=== PATIENT | female | born 1930 | race Asian ===

== ENCOUNTER 2017-01-20 18:18 | Emergency (ER) | payer OTHER ==
[~2017-01-20] VITALS: Ht 152.4 cm; Wt 43.1 kg
[2017-01-20 18:42] VITALS: BP 106/48; PULSE 107; RESP 18; TEMP 97.4; O2SAT 96
--- NOTE | 2017-01-20 18:48 | NUR ---
Pt placed to ER waiting room in W/C in the care of her [id number].
--- NOTE | 2017-01-20 18:53 | NUR ---
DR. COTO EXAMINING PT
--- NOTE | 2017-01-20 19:00 | NUR ---
Pt eloped. Caregiver seen wheeling pt out of hospital. Pt in stable condition.
== END 2017-01-20 19:00 | disposition left against medical advice (07) ==
LOC: SED 18:18
DX: R53.1 Weakness (principal); J44.9 Chronic obstructive pulmonary disease, unspecified; E11.9 Type 2 diabetes mellitus without complications; Z90.49 Acquired absence of other specified parts of digestive tract
CPT/HCPCS: 99281

== ENCOUNTER 2018-04-22 13:28 | Inpatient (IN) | payer OTHER ==
[~2018-04-22] VITALS: Ht 154.9 cm; Wt 51.7 kg
[~2018-04-22 13:28] MED LIST: ALBU2.5V7 INH; AZIT250T PO; CYAN250014 PO; DONE10TA44 PO; LEVO250T2 PO; PARO-41 PO; SSNOVOLOG SUBCUT; VITA1CAP PO; [UNRECOGNIZED DRUG - CODE] PO
[2018-04-22 13:30] VITALS: BP_SYST 169
[2018-04-22] MEDS ORDERED: IPRATROPIUM/ALBUTEROL SULFATE 3 ML AMPUL.NEB INH ONE ×2 (13:45→15:45)
[2018-04-22] MEDS ORDERED: methylPREDNISolone SOD SUCC/PF 62.5 MG/ML VIAL IVP ONE (13:45)
[2018-04-22 14:19] LABS: BILIRUBIN,URINE NEGATIVE (NEGATIVE); BLOOD, URINE 2+ (NEGATIVE); CLARITY/URINE CLOUDY (CLEAR); COLOR,URINE YELLOW (YELLOW); GLUCOSE,URINE TRACE (NEGATIVE); KETONES,URINE NEGATIVE (NEGATIVE); LEUKOCYTE ESTERASE ,URINE 2+ (NEGATIVE); NITRITE, URINE NEGATIVE (NEGATIVE); PROTEIN URINE 3+ (NEGATIVE); UROBILINOGEN,URINE 0.2 (0.2-1.0)
[2018-04-22 14:31] LABS: BACTERIA,URINE MANY /HPF (None Seen); WBC,URINE >100 /HPF (0-3)
[2018-04-22 14:32] LABS: FINE GRANULAR CASTS,URINE 1+ /LPF (None Seen); YEAST,URINE None Seen /HPF (None Seen)
[2018-04-22 14:33] LABS: MUCUS,URINE None Seen /LPF (None Seen)
[2018-04-22 14:35] LABS: BASOPHILS # (AUTO) 0.1 K/uL (0.0-0.2); BASOPHILS % (AUTO) 0.6 % (0.0-2.0); EOSINOPHILS # (AUTO) 0.2 K/uL (0.0-0.4); EOSINOPHILS % (AUTO) 1.8 % (0.0-4.0); HEMATOCRIT 33.4 % (36-48); HEMOGLOBIN 10.8 g/dL (12.0-16.0); LYMPHOCYTES # (AUTO) 0.9 K/uL (1.0-5.5); LYMPHOCYTES % (AUTO) 8.5 % (20.5-51.5); MEAN CORPUSCULAR HEMOGLOBIN 27 pg (27-31); MEAN CORPUSCULAR HGB CONC 32 % (32-36); MEAN CORPUSCULAR VOLUME 83 fL (79.0-98.0); MONOCYTES # (AUTO) 0.5 K/uL (0.0-1.0); MONOCYTES % (AUTO) 5.3 % (1.7-9.3); NEUTROPHILS # (AUTO) 8.7 K/uL (1.8-7.7); NEUTROPHILS % (AUTO) 83.8 % (40.0-70.0); PLATELET COUNT (AUTO) 325 K/uL (130-430); RED BLOOD CELL COUNT(AUTO) 4.01 MIL/uL (4.2-6.2); RED CELL DISTRIBUTION WIDTH 12.6 % (9.0-15.0); WHITE BLOOD COUNT (AUTO) 10.4 K/uL (4.8-10.8)
[2018-04-22 14:49] LABS: PROTHROMBIN TIME 10.3 SECS (9.5-12.5)
[2018-04-22 14:54] LABS: ANION GAP 9 (5-15); CALCIUM 8.5 mg/dL (8.4-11.0); CHLORIDE 104 mmol/L (98-107); CREATININE 2.25 mg/dL (0.55-1.30); GLUCOSE 236 mg/dL (70-99); POTASSIUM 4.6 mmol/L (3.5-5.1); SODIUM SERUM 137 mmol/L (136-145); UREA NITROGEN, BLOOD 43 mg/dL (8-21)
[2018-04-22 14:59] LABS: ALANINE AMINOTRANSFERASE 21 U/L (12-78); ALBUMIN 3.3 g/dL (3.4-4.8); ASPARTATE AMINOTRANSFERASE 29 U/L (10-37); TOTAL BILIRUBIN 0.2 mg/dL (0.0-1.0)
[2018-04-22] MEDS ORDERED: cefTRIAXone 1 GM IVPB PREMIX 50 ML IV ONE (15:15)
[2018-04-22] MEDS ORDERED: SER25 PO (15:24)
[2018-04-22] MEDS ORDERED: FAMO20TA8 PO (15:24)
[2018-04-22] MEDS ORDERED: MAGN400T10 PO (15:24)
[2018-04-22] MEDS ORDERED: L.RH1CAP PO (15:24)
[2018-04-22] MEDS ORDERED: IPRATROPIUM/ALBUTEROL SULFATE 3 ML AMPUL.NEB INH PRN (15:30)
[2018-04-22] MEDS ORDERED: IPRATROPIUM/ALBUTEROL SULFATE 3 ML AMPUL.NEB ONE (15:42)
[2018-04-22] MEDS ORDERED: LEVOFLOXACIN 250 MG/D5W 50 ML IV ONE (16:00)
[2018-04-22 16:25] VITALS: BP_SYST 121
[2018-04-22] MEDS ORDERED: ACETAMINOPHEN 325 MG TABLET PO PRN (18:15)
[2018-04-22] MEDS ORDERED: LEVOFLOXACIN 250 MG/D5W 50 ML IV SCH (18:30)
[2018-04-22] MEDS ORDERED: COMMUNICATION ORDER XX ONE ×2 (18:30→18:45)
[2018-04-22 20:00] VITALS: BP_SYST 126
[2018-04-22] MEDS ORDERED: methylPREDNISolone SOD SUCC 40 MG/ML VIAL IVP ONE (20:00)
[2018-04-22] MEDS: MAGNESIUM OXIDE 400 MG TABLET PO SCH (20:01)
[2018-04-22] MEDS ORDERED: QUEtiapine FUMARATE 25 MG TABLET PO SCH (21:00)
[2018-04-22] MEDS ORDERED: DONEPEZIL HCL 5 MG TABLET (ARICEPT) PO SCH (21:00)
[2018-04-23] VITALS: BP_SYST 137
[2018-04-23] MEDS ORDERED: methylPREDNISolone SOD SUCC 40 MG/ML VIAL IVP SCH (06:00)
[2018-04-23 08:10] LABS: BASOPHILS % (AUTO) 0.2 % (0.0-2.0); EOSINOPHILS % (AUTO) 0.1 % (0.0-4.0); HEMATOCRIT 30.4 % (36-48); HEMOGLOBIN 10.2 g/dL (12.0-16.0); LYMPHOCYTES # (AUTO) 0.6 K/uL (1.0-5.5); LYMPHOCYTES % (AUTO) 7.3 % (20.5-51.5); MEAN CORPUSCULAR HEMOGLOBIN 28 pg (27-31); MEAN CORPUSCULAR HGB CONC 34 % (32-36); MEAN CORPUSCULAR VOLUME 83 fL (79.0-98.0); MONOCYTES # (AUTO) 0.4 K/uL (0.0-1.0); MONOCYTES % (AUTO) 4.7 % (1.7-9.3); NEUTROPHILS # (AUTO) 7.2 K/uL (1.8-7.7); NEUTROPHILS % (AUTO) 87.7 % (40.0-70.0); PLATELET COUNT (AUTO) 285 K/uL (130-430); RED BLOOD CELL COUNT(AUTO) 3.65 MIL/uL (4.2-6.2); RED CELL DISTRIBUTION WIDTH 12.8 % (9.0-15.0); WHITE BLOOD COUNT (AUTO) 8.2 K/uL (4.8-10.8)
[2018-04-23] MEDS: MAGNESIUM OXIDE 400 MG TABLET PO SCH (08:19)
[2018-04-23 08:38] LABS: ALANINE AMINOTRANSFERASE 18 U/L (12-78); ALBUMIN 2.8 g/dL (3.4-4.8); ANION GAP 10 (5-15); ASPARTATE AMINOTRANSFERASE 21 U/L (10-37); CALCIUM 8.6 mg/dL (8.4-11.0); CHLORIDE 107 mmol/L (98-107); CREATININE 2.29 mg/dL (0.55-1.30); GLUCOSE 346 mg/dL (70-99); POTASSIUM 4.8 mmol/L (3.5-5.1); SODIUM SERUM 138 mmol/L (136-145); TOTAL BILIRUBIN 0.2 mg/dL (0.0-1.0); UREA NITROGEN, BLOOD 49 mg/dL (8-21)
[2018-04-23] MEDS ORDERED: ENOXAPARIN SODIUM 30 MG/0.3 ML SYRINGE SUBCUT SCH (09:00)
[2018-04-23] MEDS ORDERED: LACTOBACILLUS RHAMNOSUS GG 1 CAP CAPSULE PO SCH (09:00)
[2018-04-23] MEDS ORDERED: CYANOCOBALAMIN 1000 mCg TABLET PO SCH (09:00)
[2018-04-23] MEDS ORDERED: FAMOTIDINE 20 MG TABLET PO SCH (09:00)
[2018-04-23 12:32] VITALS: BP_SYST 121
[2018-04-23 13:28] VITALS: BP_SYST 130
[2018-04-23] MEDS ORDERED: BUDE6HFA INH (13:59)
[2018-04-23] MEDS ORDERED: ALBU8.5H8 INH (14:01)
[2018-04-23] MEDS ORDERED: MED4 PO (14:02)
[2018-04-23] MEDS ORDERED: AZIT500T2 PO (14:03)
[2018-04-24] MEDS ORDERED: LEVOFLOXACIN 250 MG/D5W 50 ML IV SCH (21:00)
[2018-05-07] MEDS ORDERED: CHOL500037 PO (11:54)
[2018-05-07] MEDS ORDERED: ALEN10TA6 PO (11:54)
== END 2018-04-23 14:50 | disposition home or self-care (01) | DRG 189 ==
LOC: SED 13:28 → STU 15:24
PROVIDERS: ADMIT Internal Medicine; ATTEND Internal Medicine
DX: J96.01 Acute respiratory failure with hypoxia (principal); R65.11 Systemic inflammatory response syndrome (SIRS) of non-infectious origin with acute organ dysfunction; J44.1 Chronic obstructive pulmonary disease with (acute) exacerbation; J84.9 Interstitial pulmonary disease, unspecified; N39.0 Urinary tract infection, site not specified; E86.0 Dehydration; E11.9 Type 2 diabetes mellitus without complications; F03.90 Unspecified dementia, unspecified severity, without behavioral disturbance, psychotic disturbance, mood disturbance, and anxiety; H91.90 Unspecified hearing loss, unspecified ear; I11.0 Hypertensive heart disease with heart failure; I50.9 Heart failure, unspecified; R09.02 Hypoxemia; F32.9 Major depressive disorder, single episode, unspecified; Z79.899 Other long term (current) drug therapy
CPT/HCPCS: 36415; 36600; 71045; 80053; 81000-TC; 82803-TC; 83605; 83880; 84484; 85025; 85610-TC; 85730-TC; 87040-TC; 87086; 87186-TC; 93005; 94640; 96365; 96375; 99285; J0696; J1030; J1650; J1956; J2930; J7620

== ENCOUNTER 2019-10-23 19:19 | Inpatient (IN) | payer OTHER ==
[~2019-10-23] VITALS: Ht 160 cm; Wt 41.7 kg
[~2019-10-23 19:19] MED LIST changes: -ALBU2.5V7 INH; +ALBU8.5H8 INH; +ALEN10TA7 PO; -AZIT250T PO; +CHOL500037 PO; +FAMO20TA8 PO; +L.RH1CAP PO; -LEVO250T2 PO; +MAGN400T10 PO; -PARO-41 PO; +SER25 PO; -VITA1CAP PO; +[UNRECOGNIZED DRUG - CODE] PO; -[UNRECOGNIZED DRUG - CODE] PO
[2019-10-23 19:45] VITALS: BP_SYST 119
--- NOTE | 2019-10-23 19:45 | NUR ---
Patient to ER bed 6 to gown for evaluation. Side rails up.
--- NOTE | 2019-10-23 20:00 | NUR ---
Pt bropught in by ems from [facility]. EMS crew states that SNF staff informed them that patient had cough and congestion x5 days. tp has no other complaint at this time. Pt had chest xray on 11/13/2019 that showed R sided basal infiltrates per EMS crew. Pt awake, alert, confused. Pt denies shortness of breath, chest pain, nausea, vomiting, diarrhea, any other medical complaint at this time. SNF staff states that patient has not had any other unusual behavior or complaints at this time. Pt has rapid respiratory rate, with rales in upper airway and lungs. Pt had productive cough upon presentation to ED. Pt resting in ED bed. No acute distress. VSS
--- NOTE | 2019-10-23 20:00 | NUR ---
ER at bedside examining patient.
[2019-10-23 20:44] LABS: BASOPHILS % (AUTO) 0.3 % (0.0-2.0); EOSINOPHILS # (AUTO) 0.1 K/uL (0.0-0.4); EOSINOPHILS % (AUTO) 0.7 % (0.0-4.0); HEMOGLOBIN 9.1 g/dL (12.0-16.0); LYMPHOCYTES % (AUTO) 8.4 % (20.5-51.5); MEAN CORPUSCULAR HEMOGLOBIN 28 pg (27-31); MEAN CORPUSCULAR HGB CONC 33 % (32-36); MEAN CORPUSCULAR VOLUME 86 fL (79.0-98.0); MONOCYTES # (AUTO) 0.7 K/uL (0.0-1.0); MONOCYTES % (AUTO) 5.7 % (1.7-9.3); NEUTROPHILS # (AUTO) 10.5 K/uL (1.8-7.7); NEUTROPHILS % (AUTO) 84.9 % (40.0-70.0); PLATELET COUNT (AUTO) 320 K/uL (130-430); RED BLOOD CELL COUNT(AUTO) 3.26 MIL/uL (4.2-6.2); RED CELL DISTRIBUTION WIDTH 13.5 % (9.0-15.0); WHITE BLOOD COUNT (AUTO) 12.4 K/uL (4.8-10.8)
--- NOTE | 2019-10-23 21:00 | NUR ---
Pt resting in ED bed, Tolerating IV antibiotics Well.
[2019-10-23 21:03] LABS: ANION GAP 11 (5-15); CALCIUM 8.3 mg/dL (8.4-11.0); CHLORIDE 99 mmol/L (98-107); CREATININE 2.16 mg/dL (0.55-1.30); GLUCOSE 151 mg/dL (70-99); POTASSIUM 4.5 mmol/L (3.5-5.1); SODIUM SERUM 130 mmol/L (136-145); UREA NITROGEN, BLOOD 51 mg/dL (8-21)
[2019-10-23 21:08] LABS: ALANINE AMINOTRANSFERASE 23 U/L (12-78); ALBUMIN 2.9 g/dL (3.4-4.8); ASPARTATE AMINOTRANSFERASE 30 U/L (10-37); TOTAL BILIRUBIN 0.3 mg/dL (0.0-1.0)
--- NOTE | 2019-10-23 22:32 | NUR ---
Spoke with to take TO orders for admission
--- NOTE | 2019-10-23 22:35 | NUR ---
Spoke to [facility] [place] floor to request Bed
--- NOTE | 2019-10-23 23:30 | NUR ---
Pt will be MST/TELE HOLD in ER
[2019-10-24] MEDS ORDERED: ALBUTEROL SULFATE 0.083% 2.5 MG/3 ML VIAL.NEB INH PRN (00:45)
[2019-10-24] MEDS ORDERED: ACETAMINOPHEN 325 MG TABLET PO PRN (00:45)
[2019-10-24 04:56] LABS: BASOPHILS % (AUTO) 0.2 % (0.0-2.0); EOSINOPHILS % (AUTO) 0.3 % (0.0-4.0); HEMOGLOBIN 8.7 g/dL (12.0-16.0); LYMPHOCYTES # (AUTO) 1.1 K/uL (1.0-5.5); LYMPHOCYTES % (AUTO) 8.3 % (20.5-51.5); MEAN CORPUSCULAR HEMOGLOBIN 28 pg (27-31); MEAN CORPUSCULAR HGB CONC 32 % (32-36); MEAN CORPUSCULAR VOLUME 86 fL (79.0-98.0); MONOCYTES # (AUTO) 0.8 K/uL (0.0-1.0); MONOCYTES % (AUTO) 5.9 % (1.7-9.3); NEUTROPHILS # (AUTO) 11.4 K/uL (1.8-7.7); NEUTROPHILS % (AUTO) 85.3 % (40.0-70.0); PLATELET COUNT (AUTO) 311 K/uL (130-430); RED BLOOD CELL COUNT(AUTO) 3.15 MIL/uL (4.2-6.2); RED CELL DISTRIBUTION WIDTH 13.3 % (9.0-15.0); WHITE BLOOD COUNT (AUTO) 13.4 K/uL (4.8-10.8)
[2019-10-24 05:19] LABS: ALANINE AMINOTRANSFERASE 17 U/L (12-78); ALBUMIN 2.5 g/dL (3.4-4.8); ANION GAP 13 (5-15); ASPARTATE AMINOTRANSFERASE 24 U/L (10-37); CHLORIDE 103 mmol/L (98-107); CREATININE 2.02 mg/dL (0.55-1.30); GLUCOSE 106 mg/dL (70-99); POTASSIUM 4.9 mmol/L (3.5-5.1); SODIUM SERUM 134 mmol/L (136-145); TOTAL BILIRUBIN 0.3 mg/dL (0.0-1.0); UREA NITROGEN, BLOOD 48 mg/dL (8-21)
[2019-10-24] MEDS: NACL 0.9% 1,000 ML IV SCH ×3 (05:50→19:00)
[2019-10-24] MEDS: ALBUTEROL SULFATE 0.083% 2.5 MG/3 ML VIAL.NEB INH SCH ×2 (07:00→15:29)
--- NOTE | 2019-10-24 07:26 | NUR ---
Cuate beth in [facility] - 10/24/19 at 0727 by [email or web address] report received from Sreedhar NG Pt is in stable condition
--- NOTE | 2019-10-24 07:30 | NUR ---
report received from Sreedhar LUND. Pt is in stable condition. Waiting for a tele bed
--- NOTE | 2019-10-24 08:23 | NUR ---
Patient will be admitted to care of Dr. Ruiz. Admitted to tele unit. Will go to room 103-b. Belongings list completed. Complete and up to date summary report printed. SBAR report to be given at bedside with opportunity for questions.Bedside report given
--- NOTE | 2019-10-24 09:04 | NUR ---
[facility] THERAPIST HOLLY WAS CALLED, RE: SWALLOWING EVAL.
--- NOTE | 2019-10-24 09:45 | NUR ---
LIVESTOCK PRODUCER NOTES RECEIVED PATIENT FROM ER , ALERT AWAKE WITH HL TO RT HAND VERBAL NO DISTRESS RESP EVEN WITH ON AND OFF NON PRODUCTIVE COUGH MOIST, LALA 965 Addendum: 10/24/19 at 1214 by Maya Rosas RN ERROR FOR SATURATION LALA 96%
[2019-10-24] MEDS: MAGNESIUM OXIDE 400 MG TABLET PO SCH ×2 (09:52→20:31)
[2019-10-24] MEDS: FAMOTIDINE 20 MG TABLET PO SCH (09:52)
--- NOTE | 2019-10-24 10:45 | NUR ---
CONSULTATION PAGED/CALLED Reason for Consultation: COPD Person Who was Notified: SPOKE WITH AMAURY FROM OFFICE Consulting Physician: Textile Examiner Specialty: PULMO Ordering Physician:
[2019-10-24 11:00] VITALS: BP_SYST 112
[2019-10-24 12:19] VITALS: BP_SYST 112
--- NOTE | 2019-10-24 12:30 | NUR ---
DR ISAÍAS MENDENHALL CAME [id number] PATIENT CONDITION , ASKED IF HE WANTS DVT PPX , HE SAID HE WILL ORDER
[2019-10-24 16:12] VITALS: BP_SYST 112
--- NOTE | 2019-10-24 16:50 | NUR ---
S.T. SWALLOW EVAL SWALLOW EVAL COMPLETED. PT PRESENTS W/ FUNCTIONAL OROPHARYNGEAL SWALLOW FOR PUREE AND THIN/THICK LIQUIDS. NO S/S OF ASPIRATION. NOT A CANDIDATE FOR [facility] SOFT OR REGULAR TEXTURED DIET AT THIS TIME D/T MISSING UPPER DENTITION AND LOOSE FITTING LOWER DENTURES. REC: PUREE DIET. THIN LIQUIDS OK. NURSE CHERIE NOTIFIED.
--- NOTE | 2019-10-24 17:30 | NUR ---
ROUNDS PATIENT IS IN BED SLEEPING
--- NOTE | 2019-10-24 18:07 | NUR ---
REFUSED BS PATIENT REFUSED BLOOD SUGAR CHECK , PATIENT ALSO SCRATCHED AND CURST TO NURSES AND SAYS BAD WORDS, REDIRECTED BUT SHE IS VERY QUICK AND SHE SCRATCHED Addendum: 10/24/19 at 1957 by Maya Rosas RN DR LAYTON CAME PATIENT AND DISCUSSED PATIENT CONDITION
[2019-10-24 19:00] VITALS: BP_SYST 115
--- NOTE | 2019-10-24 19:00 | NUR ---
ENDORSEMENT WILL ENDORSE TO NEXT SHIFT CONT CARE , ON LAST ROUNDS PATIENT NOTED WITH BLACKISH STOOL WILL ENDORSED TO NEXT SHIFT TO NOTIFY MD NEEDED, PATIENT IS RESTED AT THIS TIME
[2019-10-24] MEDS ORDERED: FLU VACC TS2019(65UP)/MF59C/PF 45 MCG/0.5 ML SYRINGE I.M. PRN (19:45)
[2019-10-24 20:00] VITALS: BP_SYST 115
[2019-10-24] MEDS: cefTRIAXone 1 GM IVPB PREMIX 50 ML IV SCH (20:30)
[2019-10-24] MEDS: QUEtiapine FUMARATE 25 MG TABLET PO SCH (20:31)
[2019-10-24] MEDS: DONEPEZIL HCL 5 MG TABLET (ARICEPT) PO SCH (20:31)
[2019-10-24] MEDS: AZITHROMYCIN 500 MG in NS 250 ML IV SCH (20:31)
[2019-10-24] MEDS: methylPREDNISolone SOD SUCC/PF 62.5 MG/ML VIAL IVP SCH (20:34)
[2019-10-24] MEDS: INSULIN LISPRO SLIDING SCALE 100 UNITS/ML VIAL (humaLOG) SUBCUT PRN (20:51)
[2019-10-25] VITALS: BP_SYST 110
[2019-10-25] MEDS: INSULIN LISPRO SLIDING SCALE 100 UNITS/ML VIAL (humaLOG) SUBCUT PRN ×4 (06:03→21:44)
[2019-10-25] MEDS: IPRATROPIUM BROM 0.5 MG/2.5 ML VIAL.NEB (ATROVENT) INH SCH ×3 (07:31→19:46)
[2019-10-25] MEDS: ALBUTEROL SULFATE 0.083% 2.5 MG/3 ML VIAL.NEB INH SCH ×3 (07:31→19:46)
[2019-10-25 08:00] VITALS: BP_SYST 103
[2019-10-25] MEDS ORDERED: FLU VACC QS2019-20 36MOS UP/PF 60 MCG/0.5 ML SYRINGE I.M. PRN (08:00)
--- NOTE | 2019-10-25 08:00 | NUR ---
ASSUMPTION OF CARE: RECEIVED PT A/A/OX4, DX:INADEQUATE VENTILATION, R/T PNEUMONIA, BREATH SOUNDS ARE RHONCHI, BREATHING IS UNLABORED, IV SITE INTACT, PATENT, NO REDNESS OR SWELLING, AFEBRILE, VSS, NO INDICATION OF DISTRESS OR DISCOMFORT, RESTING ON AIR MATTRESS, POSITIONED FOR COMFORT, WILL CONT' TO MONITOR AND ASSESS.
[2019-10-25 08:38] LABS: ALANINE AMINOTRANSFERASE 17 U/L (12-78); ALBUMIN 2.3 g/dL (3.4-4.8); ANION GAP 11 (5-15); ASPARTATE AMINOTRANSFERASE 33 U/L (10-37); CALCIUM 7.8 mg/dL (8.4-11.0); CHLORIDE 105 mmol/L (98-107); CREATININE 1.86 mg/dL (0.55-1.30); GLUCOSE 171 mg/dL (70-99); POTASSIUM 4.7 mmol/L (3.5-5.1); SODIUM SERUM 133 mmol/L (136-145); TOTAL BILIRUBIN 0.2 mg/dL (0.0-1.0); UREA NITROGEN, BLOOD 42 mg/dL (8-21)
[2019-10-25 08:56] LABS: BASOPHILS % (AUTO) 0.1 % (0.0-2.0); HEMATOCRIT 25.9 % (36-48); HEMOGLOBIN 8.6 g/dL (12.0-16.0); LYMPHOCYTES % (AUTO) 11.3 % (20.5-51.5); MEAN CORPUSCULAR HEMOGLOBIN 29 pg (27-31); MEAN CORPUSCULAR HGB CONC 33 % (32-36); MEAN CORPUSCULAR VOLUME 86 fL (79.0-98.0); MONOCYTES # (AUTO) 0.2 K/uL (0.0-1.0); MONOCYTES % (AUTO) 2.1 % (1.7-9.3); NEUTROPHILS # (AUTO) 7.7 K/uL (1.8-7.7); NEUTROPHILS % (AUTO) 86.5 % (40.0-70.0); PLATELET COUNT (AUTO) 280 K/uL (130-430); RED BLOOD CELL COUNT(AUTO) 2.99 MIL/uL (4.2-6.2); RED CELL DISTRIBUTION WIDTH 13.5 % (9.0-15.0); WHITE BLOOD COUNT (AUTO) 8.9 K/uL (4.8-10.8)
--- NOTE | 2019-10-25 09:00 | NUR ---
MAINTENANCE MECHANIC TELEPHONE: MORNING MEDS GIVEN, PER ORDERED BY Rin, TOLERATED WELL, WILL CONT' TO MONITOR, WILL CONT' WITH POC.
--- NOTE | 2019-10-25 09:21 | NUR ---
Nutrition Update Micah Scale 11 noted. Pt admitted for pneumonia. Diet: mechanical soft BMI: 16.4 kg/m2 RD to follow per nutrition care standards.
[2019-10-25] MEDS: MAGNESIUM OXIDE 400 MG TABLET PO SCH ×2 (09:27→20:56)
[2019-10-25] MEDS: methylPREDNISolone SOD SUCC/PF 62.5 MG/ML VIAL IVP SCH ×2 (09:27→20:55)
[2019-10-25] MEDS: FAMOTIDINE 20 MG TABLET PO SCH (09:28)
[2019-10-25 12:00] VITALS: BP_SYST 107
--- NOTE | 2019-10-25 12:00 | NUR ---
GLUCOSE MONITORING: BLOOD SUGAR [id number]=650, 12 UNITS HUMALOG INSULIN GIVEN SQ, TOLERATED WELL, WILL CONT' TO MONITOR AND ASSESS.
--- NOTE | 2019-10-25 12:49 | NUR ---
Dietitian Recommendations * Recommend mechanical soft, CCHO diet w/ Glucerna TID, Zach BID (supplements provide an additional ~840 kcal/day, 35 gm protein/day) CACHORRO KING Please refer to Nutrition Assessment for details. Addendum: 10/25/19 at [address] Amended: Links added.
--- NOTE | 2019-10-25 14:00 | NUR ---
NURSES NOTES: PT RESTING IN POSITION OF COMFORT, WAS PARTIALLY BATH, ORAL CARE REFUSED, REPOSITIONED FOR COMFORT, WITH PILLOW SUPPORT, WILL CONT' TO MONITOR AND ASSESS.
[2019-10-25 16:00] VITALS: BP_SYST 115
--- NOTE | 2019-10-25 17:30 | NUR ---
GLUCOSE MONITORING: BLOOD SUGAR QFWZH=373, 8 UNITS HUMALOG INSULIN GIVEN SQ, TOLERATED WELL, WILL CONT' TO MONITOR AND ASSESS.
--- NOTE | 2019-10-25 18:30 | NUR ---
END OF SHIFT: PT HAS LAB RESULT FOR (POSITIVE MRSA NARES), PLACED ON CONTACT ISOLATION, CALL PLACED TO M.Roddy, MESSAGE LEFT, AWAITING CALL BACK.
[2019-10-25] MEDS: DONEPEZIL HCL 5 MG TABLET (ARICEPT) PO SCH (20:56)
[2019-10-25] MEDS: QUEtiapine FUMARATE 25 MG TABLET PO SCH (20:56)
[2019-10-25] MEDS: cefTRIAXone 1 GM IVPB PREMIX 50 ML IV SCH (21:04)
[2019-10-25] MEDS: AZITHROMYCIN 500 MG in NS 250 ML IV SCH (21:47)
[2019-10-26] MEDS: ALBUTEROL SULFATE 0.083% 2.5 MG/3 ML VIAL.NEB INH SCH ×5 (00:08→19:45)
[2019-10-26] MEDS: IPRATROPIUM BROM 0.5 MG/2.5 ML VIAL.NEB (ATROVENT) INH SCH ×5 (00:08→19:45)
[2019-10-26 00:12] VITALS: BP_SYST 115
[2019-10-26] MEDS: INSULIN LISPRO SLIDING SCALE 100 UNITS/ML VIAL (humaLOG) SUBCUT PRN ×4 (06:20→21:20)
[2019-10-26] MEDS: NACL 0.9% 1,000 ML IV SCH ×2 (06:22→21:55)
[2019-10-26 08:00] VITALS: BP_SYST 113
--- NOTE | 2019-10-26 08:00 | NUR ---
ASSUMPTION OF CARE: RECEIVED PT A/A/OX4, DX:INADEQUATE VENTILATION, R/T PNEUMONIA, BREATH SOUNDS ARE RHONCHI, BREATHING IS UNLABORED, IV SITE INTACT, PATENT, NO REDNESS OR SWELLING, AFEBRILE, VSS, NO INDICATION OF DISTRESS OR DISCOMFORT, RESTING IN POSITIONED FOR COMFORT, WILL CONT' TO MONITOR AND ASSESS.
[2019-10-26] MEDS: MAGNESIUM OXIDE 400 MG TABLET PO SCH ×2 (08:33→21:22)
[2019-10-26] MEDS: FAMOTIDINE 20 MG TABLET PO SCH (08:33)
[2019-10-26] MEDS ORDERED: PREDNISONE 20 MG TABLET PO ONE (08:45)
[2019-10-26] MEDS ORDERED: MED4 PO (08:53)
[2019-10-26] MEDS ORDERED: LEVO250T58 PO (08:53)
[2019-10-26] MEDS ORDERED: MULTIVITAMINS TAB 1 TABLET PO ONE (09:00)
--- NOTE | 2019-10-26 09:00 | NUR ---
BOTTOM PAINTER: MORNING MEDS GIVEN, PER ORDERED BY Rin, TOLERATED WELL, WILL CONT' TO MONITOR, WILL CONT' WITH POC.
--- NOTE | 2019-10-26 09:00 | NUR ---
VISIT: AT BEDSIDE FOR ASSESSMENT OF PT, NEW ORDERS GIVEN, PT IS STABLE AT THIS TIME, WILL CONT' TO MONITOR AND ASSESS.
--- NOTE | 2019-10-26 11:30 | NUR ---
GLUCOSE MONITORING: BLOOD SUGAR XRMMH=386, 6 UNITS HUMALOG INSULIN GIVEN SQ, TOLERATED WELL, WILL CONT' TO MONITOR AND ASSESS.
[2019-10-26] MEDS: CALCITONIN SALMON,SYNTHETIC 3.7 ML SPRAY.PUMP NS SCH (11:57)
[2019-10-26 12:29] VITALS: BP_SYST 151
--- NOTE | 2019-10-26 15:16 | NUR ---
DC to SNF process: Call and spoke to Hetal regarding Dr. Garrett has ordered to DC to SNF. She said that she will contact to facility and call back.
[2019-10-26 16:08] VITALS: BP_SYST 143
--- NOTE | 2019-10-26 17:30 | NUR ---
GLUCOSE MONITORING: BLOOD SUGAR FFOUR=005, 2 UNITS HUMALOG INSULIN GIVEN SQ, TOLERATED WELL, WILL CONT' TO MONITOR AND ASSESS.
[2019-10-26 19:30] VITALS: BP_SYST 150
--- NOTE | 2019-10-26 19:40 | NUR ---
INITIAL NOTES PATIENT IS LAYING IN BED AND STABLE. NO S/S OF RESPIRATORY DISTRESS NOTED. CALL LIGHT IN REACH. BED IS LOCKED, ALARMED,AND AT THE LOWEST POSITION. FALL, SAFETY, ASPIRATION, CONTACT, AND RESPIRATORY PRECAUTIONS WILL BE IN PLACE THROUGHOUT THE SHIFT. PLAN OF CARE DISCUSSED WITH PATIENT. PATIENT UNSUCCESSFULLY DEMONSTRATES USAGE OF CALL LIGHT AT THIS TIME. WILL CONTINUE TO MONITOR FREQUENTLY.
[2019-10-26] MEDS ORDERED: INSULIN GLARGINE 100 UNITS/ML 10 ML VIAL SUBCUT SCH (21:00)
[2019-10-26] MEDS: cefTRIAXone 1 GM IVPB PREMIX 50 ML IV SCH (21:11)
[2019-10-26] MEDS: DONEPEZIL HCL 5 MG TABLET (ARICEPT) PO SCH (21:22)
[2019-10-26] MEDS: QUEtiapine FUMARATE 25 MG TABLET PO SCH (21:22)
--- NOTE | 2019-10-26 21:40 | NUR ---
PATIENT WAS CLEANED AT THIS TIME. PATIENT TOLERATED WELL. PATIENT IS STABLE. NO S/S OF RESPIRATORY DISTRESS NOTED. CALL LIGHT IN REACH. BED IS LOCKED, ALARMED, AND AT THE LOWEST POSITION.
[2019-10-26] MEDS: AZITHROMYCIN 500 MG in NS 250 ML IV SCH (21:55)
--- NOTE | 2019-10-26 23:40 | NUR ---
PATIENT IS SLEEPING AND STABLE. NO S/S OF RESPIRATORY DISTRESS NOTED. CALL LIGHT IN REACH. BED IS LOCKED, ALARMED, AND AT THE LOWEST POSITION.
[2019-10-27] MEDS: ALBUTEROL SULFATE 0.083% 2.5 MG/3 ML VIAL.NEB INH SCH ×3 (01:00→13:34)
[2019-10-27] MEDS: IPRATROPIUM BROM 0.5 MG/2.5 ML VIAL.NEB (ATROVENT) INH SCH ×3 (01:00→13:34)
--- NOTE | 2019-10-27 03:40 | NUR ---
PATIENT HAD A BOWEL MOVEMENT. PATIENT WAS CHANGED. PATIENT IS STABLE. NO S/S OF RESPIRATORY DISTRESS NOTED. CALL LIGHT IN REACH. BED IS LOCKED, ALARMED, AND AT THE LOWEST POSITION.
--- NOTE | 2019-10-27 04:30 | NUR ---
WOUND CARE PERFORMED AT THIS TIME. PATIENT TOLERATED WELL.
[2019-10-27] MEDS: INSULIN LISPRO SLIDING SCALE 100 UNITS/ML VIAL (humaLOG) SUBCUT PRN ×2 (06:08→17:01)
--- NOTE | 2019-10-27 06:46 | NUR ---
CLOSING NOTES PATIENT IS STABLE. NO S/S OF RESPIRATORY DISTRESS. CALL LIGHT IN REACH. BED IS LOCKED, ALARMED, AND AT THE LOWEST POSITION. FALL, SAFETY, ASPIRATION, CONTACT, AND RESPIRATORY PRECAUTIONS HAS BEEN IN PLACE THROUGHOUT THE SHIFT. ALL NEEDS MET. WILL CONTINUE TO MONITOR UNTIL REPORT IS GIVEN TO AM NURSE BY BEDSIDE.
[2019-10-27 07:33] LABS: BASOPHILS % (AUTO) 0.2 % (0.0-2.0); EOSINOPHILS % (AUTO) 0.1 % (0.0-4.0); HEMATOCRIT 27.8 % (36-48); HEMOGLOBIN 8.9 g/dL (12.0-16.0); LYMPHOCYTES % (AUTO) 10.4 % (20.5-51.5); MEAN CORPUSCULAR HEMOGLOBIN 28 pg (27-31); MEAN CORPUSCULAR HGB CONC 32 % (32-36); MEAN CORPUSCULAR VOLUME 86 fL (79.0-98.0); MONOCYTES # (AUTO) 0.5 K/uL (0.0-1.0); MONOCYTES % (AUTO) 5.2 % (1.7-9.3); NEUTROPHILS # (AUTO) 8.5 K/uL (1.8-7.7); NEUTROPHILS % (AUTO) 84.1 % (40.0-70.0); PLATELET COUNT (AUTO) 375 K/uL (130-430); RED BLOOD CELL COUNT(AUTO) 3.23 MIL/uL (4.2-6.2); RED CELL DISTRIBUTION WIDTH 13.7 % (9.0-15.0); WHITE BLOOD COUNT (AUTO) 10.1 K/uL (4.8-10.8)
[2019-10-27 07:55] LABS: ALANINE AMINOTRANSFERASE 32 U/L (12-78); ALBUMIN 2.5 g/dL (3.4-4.8); ANION GAP 11 (5-15); ASPARTATE AMINOTRANSFERASE 35 U/L (10-37); CALCIUM 7.8 mg/dL (8.4-11.0); CHLORIDE 107 mmol/L (98-107); GLUCOSE 128 mg/dL (70-99); POTASSIUM 4.5 mmol/L (3.5-5.1); SODIUM SERUM 137 mmol/L (136-145); TOTAL BILIRUBIN 0.2 mg/dL (0.0-1.0); UREA NITROGEN, BLOOD 43 mg/dL (8-21)
[2019-10-27 08:00] VITALS: BP_SYST 125
[2019-10-27] MEDS ORDERED: PREDNISONE 20 MG TABLET PO SCH (08:00)
--- NOTE | 2019-10-27 08:00 | NUR ---
Note Pt sitting up in bed to eat her breakfast. No SOB/resp or severe pain/discomfort noted at this time. IV in right hand intact and patent infusing IVF's well. No needs noted at this time. Call light within reach.
[2019-10-27] MEDS: MAGNESIUM OXIDE 400 MG TABLET PO SCH (08:13)
[2019-10-27] MEDS: FAMOTIDINE 20 MG TABLET PO SCH (08:13)
[2019-10-27] MEDS: CALCITONIN SALMON,SYNTHETIC 3.7 ML SPRAY.PUMP NS SCH (08:13)
[2019-10-27] MEDS ORDERED: MULTIVITAMINS TAB 1 TABLET PO SCH (09:00)
[2019-10-27 09:49] VITALS: BP_SYST 125
--- NOTE | 2019-10-27 10:30 | NUR ---
Note Pt was seen and assessed by Dr Ruiz, orders written and carried out. Pt resting in bed. No needs noted at this time. Call light within reach.
[2019-10-27] MEDS ORDERED: VANCOMYCIN HCL 750 MG/NS 250 ML IV SCH (11:00)
[2019-10-27 12:38] VITALS: BP_SYST 125
--- NOTE | 2019-10-27 14:35 | NUR ---
Note Pt finished eating her lunch and now resting in bed. Denies any needs at this time. Call light within reach.
[2019-10-27 16:37] VITALS: BP_SYST 119
--- NOTE | 2019-10-27 16:45 | NUR ---
WOUND EVALUATION: Wound Consult received from Dr. Ruiz. Thank you Dr. Ruiz for the consult. Patient received in a [place] Bed with an IsoFlex BRITANY mattress, awake, alert, confused. Patient is unable to turn in bed independently. Micah Score is a 14. Past Medical History: Hypertension, Dementia, Diabetes Mellitus, COPD. Recent Labs: WBC 10.1, RBC 3.23, hemoglobin 8.9, hematocrit 27.8, BUN 43, creatinine 1.80, glucose 128, POC glucose 216, calcium 7.8, albumin 2.5. Microbiology: Blood culture results 2 in progress. MRSA screen results positive. Intrinsic factors that delay wound healing: Diabetes Mellitus, COPD. Extrinsic factors that delay wound healing: Decreased mobility. Wound Assessment: 1. Sacral Area: sDTI, present on admission. Site has barely blanchable red erythema with dark discoloration. No odor, no drainage. Site measures 7.0 cm x 6.0 cm. Recommend: Cover site with sacral foam dressing. Offload site at all times. Reposition patient side to side only every hour. 2. Left Lateral Hip: Blanchable red erythema, present on admission. No odor, no drainage. Healed wound with scar tissue present. 3. Right Lateral Hip: Blanchable red erythema, present on admission. No odor, no drainage. Dark discoloration and scar tissue present. Recommend: Cover sites with foam dressings. Offload sites at all times. Reposition patient side to side only every hour. 4. Left Heel: sDTI, present on admission. Site has barely blanchable red erythema with dark discoloration. No odor, no drainage. 5. Right Heel: sDTI, present on admission. Site has barely blanchable red erythema with dark discoloration. No odor, no drainage. 6. Left Lateral Foot: Blanchable red erythema, present on admission. No odor, no drainage. 7. Right Lateral Foot: Blanchable red erythema, present on admission. No odor, no drainage. Recommend: Cover sites with foam dressings. Offload sites at all times. Do not allow heels or any portion of feet to touch bed or other surfaces at any time. 8. Right Lateral Ear: Area of brown discoloration, present on admission. Recommend: No dressing needed. Offload site at all times. Continue to monitor site qshift. Also recommend: Reposition patient side to side only every hour with pillow support and off-load pressure areas with pillows for pressure re-distribution. Offload, elevate and float bilateral heels with one pillow under each extremity at all times. Perform skin care and monitor skin integrity Q shift. Use moisture barrier cream on buttocks and other moisture susceptible areas QID and as needed for soiling. Initiate low air-loss therapy.
[2019-10-27] MEDS ORDERED: ALENDRONATE SODIUM 10 MG TABLET (FOSAMAX) PO SCH (17:00)
[2019-10-27 17:47] VITALS: BP_SYST 122
--- NOTE | 2019-10-27 18:55 | NUR ---
Note Pt resting in bed with IVF's infusing well at this time. No SOB/resp distress or pain/discomfort noted at this time. Pt was checked on q1' and PRN all shift for needs and care. Pt denies any needs at this time. Call light within reach. Pt dressed in orange gown and sheet. Report was given to [facility] - Jaret RN at 1810. Discharge packet ready at nurses' station. Call light within reach.
--- NOTE | 2019-10-27 19:30 | NUR ---
OPENING NOTE PATIENT IS RESTING IN BED AND STABLE AT THIS TIME. NO S/S OF RESPIRATORY DISTRESS NOTED. CALL LIGHT IN REACH. BED IS LOCKED, ALARMED,AND AT THE LOWEST POSITION. FALL, SAFETY, ASPIRATION, CONTACT, AND RESPIRATORY PRECAUTIONS ARE IN PLACE. PLAN OF CARE DISCUSSED WITH PATIENT. PATIENT TO BE TRANSFERRED TONIGHT. WILL MONITOR.
--- NOTE | 2019-10-27 19:30 | NUR ---
Note Pt's IV was dc'd - site benign. No swelling/redness/bleeding/drainage noted at this time. Pt stable. No needs noted at this time. Call light within reach.
--- NOTE | 2019-10-27 20:00 | NUR ---
TRANSFER PT BEING TRANSFERRED BY AMBULANCE. NO S/S OF DISTRESS. VSS. PT TAKEN VIA GURNEY. DISCHARGE PACKET AND INSTRUCTIONS GIVEN TO PT. ALL BELONGINGS SENT WITH PT.
== END 2019-10-27 20:00 | DRG 871 ==
LOC: SED 19:19 → STU 22:36 → SMU 10-26 10:17
PROVIDERS: ADMIT Internal Medicine Hospice and Palliative Medicine; ATTEND Internal Medicine Hospice and Palliative Medicine
DX: A41.9 Sepsis, unspecified organism (principal); J69.0 Pneumonitis due to inhalation of food and vomit; E43 Unspecified severe protein-calorie malnutrition; E87.1 Hypo-osmolality and hyponatremia; M48.50XA Collapsed vertebra, not elsewhere classified, site unspecified, initial encounter for fracture; E46 Unspecified protein-calorie malnutrition; Z68.1 Body mass index [BMI] 19.9 or less, adult; J84.9 Interstitial pulmonary disease, unspecified; F03.90 Unspecified dementia, unspecified severity, without behavioral disturbance, psychotic disturbance, mood disturbance, and anxiety; D64.9 Anemia, unspecified; E11.22 Type 2 diabetes mellitus with diabetic chronic kidney disease; I12.9 Hypertensive chronic kidney disease with stage 1 through stage 4 chronic kidney disease, or unspecified chronic kidney disease; J43.9 Emphysema, unspecified; N18.9 Chronic kidney disease, unspecified; L89.609 Pressure ulcer of unspecified heel, unspecified stage; L89.159 Pressure ulcer of sacral region, unspecified stage; Z87.891 Personal history of nicotine dependence; Z79.899 Other long term (current) drug therapy
CPT/HCPCS: 36415; 71045; 71250-TC; 76770; 80053; 82962; 83605; 83880; 84484; 85025; 87040-TC; 87081; 92610-GN; 93005; 93306; 94640; 94760; 96365; 99285; G0378; J0456; J0696; J1815; J1956; J2930; J3370; J7030; J7050; J7512; J7613